=== PATIENT | female | born 1990 | race African-American/Black ===

== ENCOUNTER 2021-09-21 03:15 | Emergency (ER) | payer MEDICAID ==
[~2021-09-21] VITALS: Ht 175.3 cm; Wt 150.0 kg
[2021-09-21] MEDS ORDERED: LORAZEPAM 2MG/ML CPJ IV STA (03:46)
[2021-09-21] MEDS ORDERED: HALOPERIDOL LACTATE 5MG/ML VIAL IM STA (03:46)
[2021-09-21] MEDS ORDERED: DIPHENHYDRAMINE 50MG/ML VIAL IM STA (03:46)
[2021-09-21 10:00] VITALS: BP 127/48
[2021-09-21 12:14] LABS: BASOPHILS % 0.6 % (0.0-2.0); EOSINOPHILS % 1.9 % (0.0-5.0); HEMATOCRIT. 35.9 % (36.0-48.0); HEMOGLOBIN. 11.1 g/dL (12.0-16.0); LYMPHOCYTES % 46.8 % (20.0-50.0); MEAN CORPUSCULAR HEMOGLOBIN 24.2 pg (28.0-32.0); MEAN CORPUSCULAR VOLUME 78.3 fL (81.0-99.0); MEAN PLATELET VOLUME 7.4 fl (7.4-10.4); NEUTROPHILS % 37.7 % (40.0-76.0); PLATELET 410 x1000/uL (130-400); RED BLOOD CELL COUNT 4.58 mill/uL (4.2-5.4); RED CELL DISTRIBUTION WIDTH 16.4 % (11.6-14.6)
[2021-09-21 12:23] LABS: HCG SCREEN NEGATIVE
[2021-09-21 12:24] LABS: CHLORIDE 106 mEq/L (98-107)
[2021-09-21 12:30] LABS: ETHANOL BLOOD < 10 mg/dL
== END 2021-09-21 21:07 | disposition home or self-care (01) ==
LOC: ER 03:15
DX: R41.82 Altered mental status, unspecified (principal); I49.9 Cardiac arrhythmia, unspecified
CPT/HCPCS: 36415; 80053; 80320; 84703; 85025; 93005; 96372; 96374; 99284; J1200; J1630; J2060; G0480

== ENCOUNTER 2021-12-24 02:59 | Emergency (ER) | payer MEDICAID ==
[~2021-12-24] VITALS: Ht 170.2 cm; Wt 91.0 kg
[2021-12-24 03:39] LABS: BASOPHILS % 0.5 % (0.0-2.0); EOSINOPHILS % 2.8 % (0.0-5.0); HEMATOCRIT. 35.6 % (36.0-48.0); HEMOGLOBIN. 10.5 g/dL (12.0-16.0); LYMPHOCYTES % 58.6 % (20.0-50.0); MEAN CORPUSCULAR HEMOGLOBIN 23.6 pg (28.0-32.0); MEAN CORPUSCULAR VOLUME 80.2 fL (81.0-99.0); MEAN PLATELET VOLUME 7.4 fl (7.4-10.4); MONOCYTES % 14.9 % (2.0-8.0); NEUTROPHILS % 23.2 % (40.0-76.0); PLATELET 238 x1000/uL (130-400); RED BLOOD CELL COUNT 4.44 mill/uL (4.2-5.4); RED CELL DISTRIBUTION WIDTH 19.2 % (11.6-14.6)
[2021-12-24 03:50] LABS: CHLORIDE 108 mEq/L (98-107)
[2021-12-24 03:58] LABS: ETHANOL BLOOD < 10 mg/dL
[2021-12-24 04:08] LABS: CLARITY URINE CLEAR (CLEAR); COLOR URINE YELLOW (YELLOW); KETONES URINE NEGATIVE (NEGATIVE); LEUKOCYTE ESTERASE URINE 3+ (NEGATIVE); NITRITE URINE NEGATIVE (NEGATIVE); OCCULT BLOOD URINE 1+ (NEGATIVE); PH URINE 6.5 (4.5-8.0); PROTEIN URINE NEGATIVE (NEGATIVE); SPECIFIC GRAVITY URINE 1.005 (1.005-1.030); UROBILINOGEN URINE 0.2 E.U./dL (0.2-1.0)
[2021-12-24 04:23] LABS: *BARBITURATES SCREEN URINE NEGATIVE (NEGATIVE); *BENZODIAZEPINES SCREEN URINE NEGATIVE (NEGATIVE); *COCAINE SCREEN URINE NEGATIVE (NEGATIVE); CANNABINOID URINE SCREEN NEGATIVE (NEGATIVE); METHADONE URINE SCREEN NEGATIVE (NEGATIVE); OPIATES URINE SCREEN NEGATIVE (NEGATIVE); PHENCYCLIDINE URINE SCREEN NEGATIVE (NEGATIVE)
[2021-12-24 04:26] LABS: *AMPHETAMINES SCREEN URINE PRESUMTIVE POSITIVE (NEGATIVE)
[2021-12-24] MEDS ORDERED: CEFTRIAXONE 1 G PREMIX 50 ML IV ONE (04:45)
[2021-12-24] MEDS ORDERED: KEPP500 MT (06:07)
[2021-12-24] MEDS ORDERED: CEPH500C2 MT (06:07)
[2021-12-24 08:38] VITALS: BP 148/100
== END 2021-12-24 08:40 | disposition home or self-care (01) ==
LOC: ER 02:59
DX: G40.909 Epilepsy, unspecified, not intractable, without status epilepticus (principal); N30.00 Acute cystitis without hematuria
CPT/HCPCS: 36415; 70450; 80053; 80305; 80320; 81003; 84702; 85025; 93005; 96365; 99291; J0696; Z7610; G0480

== ENCOUNTER 2022-01-08 00:11 | Emergency (ER) | payer MEDICAID ==
[~2022-01-08] VITALS: Ht 170.2 cm; Wt 118.0 kg
[~2022-01-08 00:11] MED LIST: CEPH500C2 MT; KEPP500 MT
[2022-01-08] MEDS ORDERED: LEVETIRACETAM 500MG PREMIX 100 ML IV ONE (00:30)
[2022-01-08 01:00] VITALS: BP 106/54
[2022-01-08 01:37] LABS: CLARITY URINE CLOUDY (CLEAR); COLOR URINE YELLOW (YELLOW); KETONES URINE NEGATIVE (NEGATIVE); LEUKOCYTE ESTERASE URINE 2+ (NEGATIVE); NITRITE URINE NEGATIVE (NEGATIVE); OCCULT BLOOD URINE NEGATIVE (NEGATIVE); PROTEIN URINE TRACE (NEGATIVE); SPECIFIC GRAVITY URINE 1.021 (1.005-1.030)
[2022-01-08 01:53] LABS: *AMPHETAMINES SCREEN URINE NEGATIVE (NEGATIVE); *BARBITURATES SCREEN URINE NEGATIVE (NEGATIVE); *BENZODIAZEPINES SCREEN URINE NEGATIVE (NEGATIVE); *COCAINE SCREEN URINE NEGATIVE (NEGATIVE); CANNABINOID URINE SCREEN NEGATIVE (NEGATIVE); METHADONE URINE SCREEN NEGATIVE (NEGATIVE); OPIATES URINE SCREEN NEGATIVE (NEGATIVE); PHENCYCLIDINE URINE SCREEN NEGATIVE (NEGATIVE)
[2022-01-08] MEDS ORDERED: CEPH500C2 MT (02:57)
[2022-01-08] MEDS ORDERED: CEFTRIAXONE 1 G PREMIX 50 ML IV NR (03:00)
== END 2022-01-08 04:40 | disposition home or self-care (01) ==
LOC: ER 00:11
DX: O26.892 Other specified pregnancy related conditions, second trimester (principal); O14.92 Unspecified pre-eclampsia, second trimester; O23.42 Unspecified infection of urinary tract in pregnancy, second trimester; N39.0 Urinary tract infection, site not specified; R56.9 Unspecified convulsions; J45.909 Unspecified asthma, uncomplicated; F32.9 Major depressive disorder, single episode, unspecified; Z3A.18 18 weeks gestation of pregnancy; Z88.6 Allergy status to analgesic agent
CPT/HCPCS: 80305; 81003; 81025; 87086; 96365; 99284; J0696; J1953

== ENCOUNTER 2022-03-18 02:42 | Observation (INO) | payer MEDICAID ==
[~2022-03-18] VITALS: Ht 162.6 cm; Wt 112.0 kg
[2022-03-18] MEDS ORDERED: PREN1TAB78 PO (03:08)
== END 2022-03-18 05:33 | disposition home or self-care (01) ==
LOC: 8 EST LDRP 02:42
PROVIDERS: ADMIT Obstetrics & Gynecology; ATTEND Obstetrics & Gynecology
DX: O26.892 Other specified pregnancy related conditions, second trimester (principal); R10.9 Unspecified abdominal pain; N94.10 Unspecified dyspareunia; O62.9 Abnormality of forces of labor, unspecified; Z3A.25 25 weeks gestation of pregnancy
CPT/HCPCS: 59025; 76805; G0378; 99281; G0379